=== PATIENT | male | born 1995 | race Caucasian/White ===

== ENCOUNTER 2024-05-04 10:57 | Emergency (ER) | payer OTHER ==
[~2024-05-04] VITALS: Ht 182.9 cm; Wt 66.8 kg
[2024-05-04 11:03] VITALS: BP 125/82; TEMP 97.2; O2SAT 100
[2024-05-04] MEDS ORDERED: CYCL-707 PO (11:19)
[2024-05-04] MEDS ORDERED: VYVA40CA3 PO (11:19)
[2024-05-04] MEDS ORDERED: AMOX875T2 PO (12:32)
[2024-05-04] MEDS: AUGMENTIN 875 MG TAB PO ONE (12:36)
== END 2024-05-04 12:38 | disposition home or self-care (01) ==
LOC: M ED 10:57
DX: K12.2 Cellulitis and abscess of mouth (principal); K08.89 Other specified disorders of teeth and supporting structures; Z79.2 Long term (current) use of antibiotics; Z79.899 Other long term (current) drug therapy